=== PATIENT | female | born 2000 | race Hispanic/Latino ===

== ENCOUNTER 2020-08-17 17:29 | Inpatient (IN) | payer BC ==
[2020-08-17] MEDS ORDERED: Acetaminophen 500 MG TAB PO PRN (17:58)
[2020-08-17] MEDS ORDERED: Calcium Gluc 4.6 MEQ/10 ML (100 MG/ML) SLOW IVP PRN (17:58)
[2020-08-17] MEDS ORDERED: Ondansetron PF 4 MG/2 ML Vial IVP PRN (17:58)
[2020-08-17] MEDS ORDERED: hydrALAZINE 20 MG/ML VIAL SLOW IVP PRN (17:58)
[2020-08-17] MEDS ORDERED: Promethazine HCl 25 MG/ML VIAL IM PRN (17:58)
[2020-08-17 18:47] LABS: Hemoglobin 12.6 g/dL (12.0-15.5); Mean Corpuscular HGB CONC 33.7 g/dL (32.0-36.0); Mean Corpuscular Hemoglobin 32.6 pg (27.0-33.0); Mean Corpuscular Volume 96.6 fl (81.6-98.3); Mean Platelet Volume 10.7 fl (7.4-10.4); Platelet Count 250 10x3/uL (150-450); RBC Distribution Width 12.6 % (11.5-14.5); Red Blood Cell (RBC) Count 3.87 10x6/uL (3.90-5.03); White Blood Cell (WBC) Count 7.8 10x3/uL (3.5-10.5)
[2020-08-17 19:19] LABS: Creatinine, Urine 383.06 mg/dL (47-110)
[2020-08-17 19:20] LABS: Hep B Surf Ag Non-Reactive S/CO (NonReactive); Syphilis Antibody Nonreactive (Nonreactive); Syphilis Antibody Index 0.03 S/CO (<1.00 Non-Reactive)
[2020-08-17 19:30] LABS: HBSAg Index 0.15 S/CO (0-0.99)
[2020-08-17 20:30] LABS: Protein, Urine Random Quant Greater than 2000 mg/dL (1-14)
[2020-08-17 23:30] VITALS: BMI 24.7
[2020-08-18] MEDS ORDERED: Betamet Acet/Betamet Na Ph 30 MG/5 ML VIAL IM SCH (05:45)
[2020-08-18] MEDS ORDERED: Lactated Ringer's 500 ML IV SCH (05:45)
[2020-08-18 06:17] LABS: #Eosinphils 0.1 10x3/uL (0.0-0.5); #Monocytes 0.6 10x3/uL (0.0-1.1); %Basophils 0.6 % (0.0-2.0); %Eosinophils 1.5 % (0.0-6.0); %Lymphocytes 26.9 % (18.0-47.0); %Monocytes 9.7 % (0.0-10.0); Mean Corpuscular HGB CONC 34.5 g/dL (32.0-36.0); Mean Corpuscular Hemoglobin 33.7 pg (27.0-33.0); Mean Corpuscular Volume 97.8 fl (81.6-98.3); Mean Platelet Volume 10.8 fl (7.4-10.4); Platelet Count 218 10x3/uL (150-450); RBC Distribution Width 12.6 % (11.5-14.5); Red Blood Cell (RBC) Count 3.56 10x6/uL (3.90-5.03); White Blood Cell (WBC) Count 6.6 10x3/uL (3.5-10.5)
[2020-08-18] MEDS ORDERED: hydrALAZINE 20 MG/ML VIAL ONE (06:20)
[2020-08-18] MEDS ORDERED: hydrALAZINE 20 MG/ML VIAL SLOW IVP PRN (06:22)
[2020-08-18 06:24] LABS: ALT (SGPT) 27 U/L (8-55); AST (SGOT) 25 U/L (5-34); Albumin 2.6 g/dL (3.5-5.0); Alkaline Phosphatase 126 U/L (40-110); Anion Gap 12 mmol/L (10-20); BUN (Urea Nitrogen) 17 mg/dL (7.0-18.7); Bilirubin, Total 0.2 mg/dL (0.2-1.2); Calc. Creatinine Clearance 114 mL/min (70-130); Calcium 8.2 mg/dL (7.8-10.44); Carbon Dioxide 18 mmol/L (22-29); Chloride 111 mmol/L (98-107); Globulin 2.4 g/dL (2.4-3.5); Glucose 79 mg/dL (70-105); Potassium 4.4 mmol/L (3.5-5.1); Sodium 137 mmol/L (136-145)
[2020-08-18] MEDS ORDERED: Calcium Gluc 4.6 MEQ/10 ML (100 MG/ML) SLOW IVP PRN (06:24)
[2020-08-18] MEDS ORDERED: Magnesium Sulfate 20 gm/500 ml 20 GM/500 ML BAG ONE (06:29)
[2020-08-18] MEDS ORDERED: Magnesium Sulfate 20 gm/500 ml 20 GM/500 ML BAG IVPB SCH (06:30)
[2020-08-18] MEDS ORDERED: Acetaminophen 650 MG/20.3 ML UDCUP PO PRN (06:34)
[2020-08-18 17:03] LABS: SARS-CoV-2 PCR by NAA DETECTED (NotDetected)
== END 2020-08-18 10:00 | disposition short-term general hospital (02) | DRG 831 ==
LOC: CSHLD/OP 17:29 → EDSTATUS 20:15 → CSHLD 20:16 → OBSVTOIN 20:16 → INTOOBSV 20:16 → UNDOADMOB 20:16 → CSHLD 08-18 05:55 → OBSVTOIN 08-18 05:55 → UNDODISIN 08-18 10:00
PROVIDERS: ADMIT Obstetrics & Gynecology; ATTEND Obstetrics & Gynecology
DX: O98.513 Other viral diseases complicating pregnancy, third trimester (principal); O14.13 Severe pre-eclampsia, third trimester; U07.1 COVID-19; Z3A.32 32 weeks gestation of pregnancy
CPT/HCPCS: 36415; 36416; 76815; 80053; 82570; 84156; 85025; 86780; 86850; 86900; 86901; 87340; 87635; G0378; J0360; J0702; J3475; U0003; U0005